=== PATIENT | male | born 1945 | race Caucasian/White ===

== ENCOUNTER → 2017-07-07 | Day surgery (SDC) | payer MEDICARE, OTHER ==
[~2017-07-07] VITALS: Ht 165.1 cm; Wt 72.5 kg
[~2017-07-07] MED LIST: 0.9% Sodium Chloride 1,000 ML IV SCH; ASPI-973 PO; DOCU-41 PO; MULT-1018 PO; SILD20TA PO; SIMV40TA2 PO; Sodium Chloride LOK Flush 10 mL Syringe IV PRN; fentaNYL-PF 50 mCg/mL 2 mL Inj IVPUSH PRN
[2017-07-07 10:11] VITALS: BP 138/78; PULSE 65; RESP 16; O2SAT 97
[2017-07-07 11:10] VITALS: BP 113/69; PULSE 73; RESP 12; O2SAT 97
[2017-07-07 11:20] VITALS: BP 97/63; PULSE 60; RESP 11; O2SAT 98
[2017-07-07 11:22] VITALS: BP 119/75; PULSE 73; RESP 12; O2SAT 99
--- NOTE | 2017-07-07 14:42 | ENDO ---
[address] [address] ENDOSCOPY PROCEDURE PATIENT: JODI ENRIQUEZ : 1945 MR#: [id number] ADMIT: 07/07/2017 JOB ID: [id number] TITLE OF OPERATION: Colonoscopy. PREOPERATIVE DIAGNOSIS(ES): Rectal bleeding. POSTOPERATIVE DIAGNOSIS(ES): 1. Moderate sigmoid diverticulosis. 2. Small internal hemorrhoids. ANESTHESIA: Fentanyl 100 mcg, Versed 4 mg IV administered. COMPLICATIONS: None. BLOOD LOSS: Minimal. DESCRIPTION OF PROCEDURE: After the risks and benefits were explained to the patient, informed consent was obtained. After anesthesia administered, the colonoscope was inserted from the rectum to the cecum and the mucosa carefully examined. Prep of the patient was fair. After the procedure was done, the scope was withdrawn and the procedure terminated. FINDINGS: Upon inspection of the anus no masses, hemorrhoids, ulcers, or fissures that were seen. Throughout the entire examination there was mild sigmoid diverticulosis. No polyps or masses that were seen. Retroflexion showed small internal hemorrhoids. IMPRESSION: 1. Small internal hemorrhoids. 2. Moderate sigmoid diverticulosis. RECOMMENDATIONS: High-fiber diet. Follow up in [facility] Clinic as needed. Stool softener as needed.
== END | disposition home or self-care (01) ==
LOC: END 00:31
PROVIDERS: ATTEND Internal Medicine Gastroenterology
DX: K62.5 Hemorrhage of anus and rectum (principal); K57.30 Diverticulosis of large intestine without perforation or abscess without bleeding; K64.8 Other hemorrhoids; E78.00 Pure hypercholesterolemia, unspecified; Z79.82 Long term (current) use of aspirin
CPT/HCPCS: 45378; G0500; J2250; J3010; J7030